=== PATIENT | female | born 1960 | race Caucasian/White ===

== ENCOUNTER 2016-05-14 09:44 | Emergency (ER) | payer SELFPAY ==
--- NOTE | 2016-05-14 11:14 | ER Document Report ---
ED Headache - General Mode of Arrival: Ambulatory Information source: Patient TRAVEL OUTSIDE OF THE [place] IN LAST 30 DAYS: No - HPI Patient complains to provider of: Headache Associated symptoms: Other - See above - General Chief Complaint: Headache Stated Complaint: HEAD PAIN Notes: Patient is a 55 year old female who presents to the emergency department complaining of a headache. Patient reports the headache began before [place] when she tripped over her dog and hit the right side of her head on an oak table. Patient states that since the incident she has had a constant headache which is relieved by "2 ibuprofen and smoking a little weed" but does not help with the burning which she describes as though her "head is on fire". Patient states that the pain has started to affect her work and she is tearful telling her story. (AGUEDA MICHAUD) - Related Data Allergies/Adverse Reactions: No Known Allergies Allergy (Verified 10/27/12 11:48) Past Medical History - General Information source: Patient - Social History Smoking Status: Current Every Day Smoker Frequency of alcohol use: None Drug Abuse: Marijuana Family History: Reviewed & Not Pertinent Patient has suicidal ideation: No Patient has homicidal ideation: No Neurological Medical History: Reports: Hx Migraine Past Surgical History: Reports: Hx Cholecystectomy Review of Systems - Review of Systems Constitutional: No symptoms reported EENT: No symptoms reported Cardiovascular: No symptoms reported Respiratory: No symptoms reported Gastrointestinal: No symptoms reported Genitourinary: No symptoms reported Female Genitourinary: No symptoms reported Musculoskeletal: No symptoms reported Skin: No symptoms reported Hematologic/Lymphatic: No symptoms reported Neurological/Psychological: See HPI, Headaches -: Yes All other systems reviewed and negative Physical Exam - Vital signs Interpretation: Normal - General General appearance: Appears well, Alert - HEENT Head: Tenderness - Scalp muscles tender to palpation Neck: Other - Posterior cervical muscles are exquisitely tender to palpation - Respiratory Respiratory status: No respiratory distress - Back Back: Normal, Nontender - Extremities General upper extremity: Normal inspection, Normal ROM, Normal strength General lower extremity: Normal inspection, Normal ROM, Normal strength - Neurological Neuro grossly intact: Yes Cognition: Normal Orientation: AAOx4 [place] Coma Scale Eye Opening: Spontaneous Krist[place] Coma Scale Verbal: Oriented [place] Coma Scale Motor: Obeys Commands [place] Coma Scale Total: 15 Speech: Normal Motor strength normal: LUE, RUE, LLE, RLE - Psychological Associated symptoms: Normal affect, Normal mood - Skin Skin Temperature: Warm Skin Moisture: Dry Skin Color: Normal Discharge - Discharge Clinical Impression: Tension headache Condition: Stable Disposition: HOME, SELF-CARE Additional Instructions: Tension Headache: Your problem has been diagnosed as muscle tension headache. This very common type of headache occurs because of tightness in the muscles of the head and neck. The cause may be neck or jaw joint problems, but most commonly the cause is emotional stress. The headache may last hours or days. The treatment of uncomplicated tension headaches is rest and pain medication. Often, the newer antiinflammatory pain medications are prescribed, as these also decrease the irritability of the painful tissues. Muscle relaxers , cold packs, or warm packs are sometimes helpful. Anti-anxiety medication or narcotics are sometimes needed temporarily, but are best avoided in the long run. Your doctor has evaluated your headache problem, and finds no evidence of a serious health problem as a cause for the headache. If your headache becomes more severe, or if new symptoms develop (such as fever, stiff neck, vomiting, or decreasing alertness) you should be re-examined by the physician. TAKE THE MEDICATION PRESCRIBED FOR A FEW DAYS. TAKE 2 ALEVE EVERY 12 HOURS. TRY MOIST HEAT TO THE PAINFUL NECK MUSCLES. FOLLOW UP WITH A LOCAL MEDICAL DOCTOR IF NOT IMPROVING.. RETURN TO THE EMERGENCY ROOM IF ANY NEW OR WORSENING SYMPTOMS. Prescriptions: Cyclobenzaprine HCl [Flexeril 5 mg Tablet] 5 mg PO TID PRN #15 tablet PRN Reason: Hydrocodone/Acetaminophen [Hydrocodon-Acetaminophen 5-325] 1 each PO Q4 PRN #15 tablet PRN Reason: For Pain Scribe Attestation: 05/14/16 14:23 I personally performed the services described in the documentation, reviewed and edited the documentation which was dictated to the scribe in my presence, and it accurately records my words and actions. (SHEKHAR COPELAND) Scribe Documentation - Scribe Written by Riley:: riley José, 05/14/16, 1122 acting as scribe for :: Emanuel
[2016-05-14] MEDS ORDERED: DIPHENHYDRAMINE HCL 50 MG/ML VIAL IV ONE (11:15)
[2016-05-14] MEDS ORDERED: PROCHLORPERAZINE EDISYLATE INJ 10 MG/2 ML VIAL IV ONE (11:15)
[2016-05-14] MEDS ORDERED: NORMAL SALINE 1000 ML 1,000 ML IV ONE (11:15)
[2016-05-14] MEDS ORDERED: KETOROLAC TROMETHAMINE INJ/PF 30 MG/1 ML SDV IV ONE (11:16)
[2016-05-14 14:14] VITALS: BP 104/74
== END 2016-05-14 14:40 | disposition home or self-care (01) ==
LOC: ER 09:44
DX: G44.209 Tension-type headache, unspecified, not intractable (principal); W01.0XXA Fall on same level from slipping, tripping and stumbling without subsequent striking against object, initial encounter; F17.200 Nicotine dependence, unspecified, uncomplicated
CPT/HCPCS: 99284; 96374; 96375; 70450; J1200; J1885; J0780

== ENCOUNTER 2016-12-10 14:21 | Emergency (ER) | payer OTHER ==
--- NOTE | 2016-12-10 14:55 | ER Document Report ---
ED General - General Chief Complaint: Foot Pain Stated Complaint: FOOT INJURY Time Seen by Provider: 12/10/16 14:38 Notes: 56 yo female c/o right plantar puncture wound x 3 days. pt stepped on mateo nail, went through flip flop into foot. pt also c/o pain to right ribs x 9 days. pt slipped and hit ribs on chicken coop. no bruising. no shortness of breath. no fever. TRAVEL OUTSIDE OF THE [place] IN LAST 30 DAYS: No - HPI Quality of pain: Achy Pain Level: 4 Exacerbated by: Walking, Deep breathing Relieved by: Denies Similar symptoms previously: No Recently seen / treated by doctor: No - Related Data Allergies/Adverse Reactions: No Known Allergies Allergy (Verified 12/10/16 14:22) Past Medical History - General Information source: Patient - Social History Smoking Status: Current Every Day Smoker Chew tobacco use (# tins/day): No Frequency of alcohol use: None Drug Abuse: Marijuana Lives with: Family Family History: Reviewed & Not Pertinent Neurological Medical History: Reports: Hx Migraine Renal/ Medical History: Denies: Hx Peritoneal Dialysis Past Surgical History: Reports: Hx Cholecystectomy Review of Systems - Review of Systems Constitutional: No symptoms reported EENT: No symptoms reported Cardiovascular: No symptoms reported Respiratory: No symptoms reported Gastrointestinal: No symptoms reported Genitourinary: No symptoms reported Female Genitourinary: No symptoms reported Skin: No symptoms reported Hematologic/Lymphatic: No symptoms reported Neurological/Psychological: No symptoms reported Physical Exam - Vital signs Vitals: Temp Pulse Resp BP Pulse Ox 97.9 F 78 18 121/83 99 12/10/16 14:22 12/10/16 14:22 12/10/16 14:22 12/10/16 14:22 12/10/16 14:22 Interpretation: Normal - General General appearance: Appears well, Alert - HEENT Head: Normocephalic, Atraumatic Eyes: Normal Pupils: PERRL - Respiratory Respiratory status: No respiratory distress Chest status: Tender - right lateral ribs tender. no echymosis. no crepitus Breath sounds: Normal Chest palpation: Normal - Cardiovascular Rhythm: Regular Heart sounds: Normal auscultation Murmur: No - Abdominal Inspection: Normal Distension: No distension Bowel sounds: Normal Tenderness: Nontender Organomegaly: No organomegaly - Back Back: Normal, Nontender - Extremities General upper extremity: Normal inspection - + puncture wound to right mid plantar foot. mild surrounding erythema with focal tenderness. no evidence of retained foreign body. no s/s deep tissue infection or abscess. pain not out of proportion, no drainage, no fever, Nontender, Normal color, Normal ROM, Normal temperature General lower extremity: Normal inspection, Nontender, Normal color, Normal ROM , Normal temperature, Normal weight bearing. No: Tan's sign - Neurological Neuro grossly intact: Yes Cognition: Normal Orientation: AAOx4 Kristan Coma Scale Eye Opening: Spontaneous Kristan Coma Scale Verbal: Oriented [place] Coma Scale Motor: Obeys Commands [place] Coma Scale Total: 15 Speech: Normal Motor strength normal: LUE, RUE, LLE, RLE Sensory: Normal - Psychological Associated symptoms: Normal affect, Normal mood - Skin Skin Temperature: Warm Skin Moisture: Dry Skin Color: Normal Course - Re-evaluation Re-evalutation: 12/10/16 14:55 + puncutre wound to mid plantar foot. no s/s cellulitis, soft tissue abscess, septic arthritis, tenosynovitis, necrotizing soft tissue infection, and osteomyelitis 12/10/16 15:05 xray negative for foreign body. 12/10/16 15:[address] Goodman. agrees with plan to treat with Cipro. no debridement indicated at this time. pt stable for discharge - Vital Signs Vital signs: Temp Pulse Resp BP Pulse Ox 97.9 F 78 18 121/83 99 12/10/16 14:22 12/10/16 14:22 12/10/16 14:22 12/10/16 14:22 12/10/16 14:22 Discharge - Discharge Clinical Impression: Rib pain on right side Puncture wound of plantar aspect of right foot Qualifiers: Encounter type: initial encounter Qualified Code(s): S91.331A - Puncture wound without foreign body, right foot, initial encounter Condition: Stable Disposition: HOME, SELF-CARE Instructions: Antibiotic Therapy ([facility]), Oral Narcotic Medication ([facility]) Additional Instructions: keep wound clean elevate foot as much as possible take antibiotics as prescribed return to ER for any increased redness, swelling or pain for your rib pain, I encourage you to take deep breaths and avoid shallow breathing stop smoking return to ER for any shortness of breath or fever Prescriptions: Ciprofloxacin HCl [Cipro 500 mg Tablet] 500 mg PO BID #20 tablet Hydrocodone/Acetaminophen [Flint 5-325 mg Tablet] 1 tab PO Q4H PRN #15 tablet PRN Reason: Forms: Return to Work
[2016-12-10] MEDS ORDERED: DIPH/PERTUSS(ACELL)/TETANUS VAC/PF 0.5 ML SYR (>=10YO) IM ONE (14:59)
--- NOTE | 2016-12-10 15:21 | RADIOLOGY REPORT (SQ) ---
EXAM DESCRIPTION: FOOT RIGHT COMPLETE COMPLETED DATE/TIME: 12/10/2016 3:10 pm REASON FOR STUDY: plantar puncture wound ? FB COMPARISON: None. NUMBER OF VIEWS: Three views. TECHNIQUE: AP, lateral and oblique radiographic images acquired of the right foot. LIMITATIONS: None. FINDINGS: MINERALIZATION: Normal. BONES: No acute fracture or dislocation. No worrisome bone lesions. JOINTS: No effusions. SOFT TISSUES: No soft tissue swelling. No foreign body. OTHER: No other significant finding. IMPRESSION: NEGATIVE STUDY OF THE RIGHT FOOT. NO RADIOGRAPHIC EVIDENCE OF ACUTE INJURY. TECHNICAL DOCUMENTATION: JOB ID: [id number] [employer]- All Rights Reserved
[2016-12-10 15:47] VITALS: BP 130/73
== END 2016-12-10 15:48 | disposition home or self-care (01) ==
LOC: ER 14:21
DX: S91.331A Puncture wound without foreign body, right foot, initial encounter (principal); W45.0XXA Nail entering through skin, initial encounter; R07.81 Pleurodynia; F17.200 Nicotine dependence, unspecified, uncomplicated
CPT/HCPCS: 90471; 90715; 99283

== ENCOUNTER 2020-01-21 18:36 | Emergency (ER) | payer SELFPAY ==
--- NOTE | 2020-01-21 21:03 | RADIOLOGY REPORT (SQ) ---
EXAM DESCRIPTION: XR CHEST 1 VIEW COMPLETED DATE/TME: 01/21/2020 20:02 CLINICAL HISTORY: 59 years, Female, cough COMPARISON: None. TECHNIQUE: Upright portable chest x-ray FINDINGS: Borderline heart size. No suspicious mediastinal widening. Mild hyperinflation. No acute lung pleural bone analysis.
--- NOTE | 2020-01-21 21:24 | ER Document Report ---
Entered by MILVIA DICKSON SCRIBE 01/21/202018 Acting as scribe for:MILI LEBRON DO ED General - General Chief Complaint: Chemical Exposure Stated Complaint: CHEMICAL INHALATION Time Seen by Provider: 01/21/20 19:21 Information source: Patient Notes: This 59 year old female patient presents to the emergency department today with complaints of chemical exposure and inhalation. 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 Patient states when opening the 2nd chemical container, it sprayed up and she inhaled some of the chemicals, causing shortness of breath. Patient states this occurred around x30 min charter boat [employer]. Patient states she is an everyday smoker, not on any medications, and denies any covid exposure. TRAVEL OUTSIDE OF THE [place] IN LAST 30 DAYS: No - Related Data Allergies/Adverse Reactions: No Known Allergies Allergy (Verified 12/10/16 14:22) Past Medical History - General Information source: Patient - Social History Smoking Status: Current Every Day Smoker Cigarette use (# per day): Yes Chew tobacco use (# tins/day): No Frequency of alcohol use: None Drug Abuse: Marijuana Family History: Reviewed & Not Pertinent Patient has homicidal ideation: No Neurological Medical History: Reports: Hx Migraine Renal/ Medical History: Denies: Hx Peritoneal Dialysis Past Surgical History: Reports: Hx Cholecystectomy Review of Systems - Review of Systems Constitutional: No symptoms reported EENT: No symptoms reported Cardiovascular: No symptoms reported Respiratory: See HPI, Short of breath, Other - Chemical inhalation Gastrointestinal: No symptoms reported Genitourinary: No symptoms reported Female Genitourinary: No symptoms reported Musculoskeletal: No symptoms reported Skin: No symptoms reported Hematologic/Lymphatic: No symptoms reported Neurological/Psychological: No symptoms reported -: Yes All other systems reviewed and negative Physical Exam - Vital signs Vitals: Temp 99 F 01/21/20 18:36 - General General appearance: Appears well, Alert - HEENT Head: Normocephalic, Atraumatic Eyes: Normal Pupils: PERRL - Respiratory Respiratory status: No respiratory distress Chest status: Nontender Chest palpation: Normal Notes: Mild diminished breath sounds in bases bilaterally. - Cardiovascular Rhythm: Regular Heart sounds: Normal auscultation Murmur: No - Abdominal Inspection: Normal Distension: No distension Bowel sounds: Normal Tenderness: Nontender - Extremities General upper extremity: Normal inspection, Normal ROM General lower extremity: Normal inspection, Normal ROM. No: Edema - Neurological Neuro grossly intact: Yes Cognition: Normal Orientation: AAOx4 [place] Coma Scale Eye Opening: Spontaneous Kristan Coma Scale Verbal: Oriented [place] Coma Scale Motor: Obeys Commands [place] Coma Scale Total: 15 Speech: Normal - Psychological Associated symptoms: Normal affect, Normal mood - Skin Skin Temperature: Warm Skin Moisture: Dry Skin Color: Normal Course - Re-evaluation Re-evalutation: 01/21/20 21:24 MDM 59 year old female appears as if likely some copd is here after being overcome with inhalation with fogger. Feels much better here. CXR looks without acute effect from the inahalation. Discussed smoking cessation. - Vital Signs Vital signs: Temp Pulse Resp BP Pulse Ox 99.0 F 23 H 109/81 96 01/21/20 19:01 01/21/20 19:01 01/21/20 19:01 01/21/20 19:01 Discharge - Discharge Clinical Impression: Inhalation injury Condition: Stable Disposition: HOME, SELF-CARE Instructions: Inhalation Injury ([facility]) Additional Instructions: Stop smoking. Use the medicine as directed for cough or shortness of breath. Please return here for chest pain or shortness of breath. I personally performed the services described in the documentation, reviewed and edited the documentation which was dictated to the scribe in my presence, and it accurately records my words and actions.
[2020-01-21 21:45] VITALS: BP 113/83
== END 2020-01-21 21:49 | disposition home or self-care (01) ==
LOC: ER 18:36
DX: T75.89XA Other specified effects of external causes, initial encounter (principal); T14.90XA Injury, unspecified, initial encounter; R06.02 Shortness of breath; Y92.029 Unspecified place in mobile home as the place of occurrence of the external cause; Y93.89 Activity, other specified; F17.210 Nicotine dependence, cigarettes, uncomplicated; F12.10 Cannabis abuse, uncomplicated
CPT/HCPCS: 71045; 99283